=== PATIENT | male | born 1975 | race Caucasian/White ===

== ENCOUNTER → 2016-11-03 | Outpatient (CLI) | payer BC ==
--- NOTE | 2016-11-03 11:33 | MRI ---
MRI lumbar spine without contrast Indication: Lower back pain after doing squats Technique: Multiplanar, multi sequence imaging of the lumbar spine without IV contrast administration . Findings: The lumbar spine alignment is maintained. Schmorl's nodes are noted the T12, L1 and L2. The re is moderate disk desiccation and mild disc space loss at L4-5 and L5-S1. Increased signal within t he disc bulge at L5-S1 on sagittal image 7 consistent with an annular tear. No localizing bone marrow signal abnormality within the lumbar spine. There is mild edema within the interspinous space of L4- 5 consistent with a low-grade strain. No localizing fluid collection. No prevertebral fluid collectio n. The conus has a normal termination. At T12-L1 unremarkable At L1-2 unremarkable At L2-3 unremarkable. At L3-4 mild facet arthropathy without neural foraminal or spinal canal stenosis. At L4-5 broad-based disc bulge with a focal midline disc protrusion noted on axial image 34 with mild facet arthropathy causes mild spinal canal stenosis with no significant neural foraminal narrowing. At L5-S1 mild broad-based disc bulge and facet arthropathy causes mild spinal canal stenosis with mil d left and right sided neural foraminal narrowing. Impression: 1. Multilevel discogenic degenerative change and facet arthropathy most severely affecting L4-5 and L 5-S1 as described above. 2. Increased STIR and T2 signal within the posterior disc bulge at L5-S1 is consistent with an acute/ subacute annular tear. 3. Mild edema within interspinous space at L4-5 consistent with a low-grade muscle strain. Reported By:
== END | disposition home or self-care (01) | DRG 552 ==
LOC: RAD 08:53
PROVIDERS: ATTEND Internal Medicine
DX: M54.5 Low back pain (principal); R60.0 Localized edema; M46.87 Other specified inflammatory spondylopathies, lumbosacral region
CPT/HCPCS: 72148

== ENCOUNTER 2017-08-03 06:52 | Observation (INO) ==
[2017-08-03] MEDS ORDERED: DUONEB 0.5 MG/3 MG ONE ×2 (06:56→09:39)
[2017-08-03 06:57] VITALS: BMI 33.2
--- NOTE | 2017-08-03 07:02 | DR.CP ---
HPI - Time Seen Time seen: 06:55 - PCP Primary Care Physician: ARNAUD - Complaint Chief Complaint Doctor Comments: 42 y/o male c/o that he can't catch his breath. He has rappid heart beat but no c/p. He denies nausea or vomitting or diaaphoresis. 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 PT. STATES "IT FEELS LIKE MY HEART IS RUNNING AWAY, LIKE A NERVOUS FEELING." - Reviewed Nurses Notes Review: Yes - Source History Provided: Patient, Family Member, EMS - Mode of Arrival Mode of Arrival: EMS - Timing Onset of Chief Complaint: 08/03/17 - Associated Signs and Symptoms Associated Signs and Symptoms: Shortness of Breath, Palpitations. denies: Diaphoresis, Abdominal Pain, Nausea/Vomiting, Calf Pain/Swelling, Chest Rash PMH - PMH Past Medical History: Yes Past Medical History: Hypertension Past Medical History Comment: BACK PAIN Past Surgical History: Yes Surgical History: Ortho Surgery - Family History History of Family Medical Conditions: No - Social History Does patient currently use any type of tobacco product: No Have you used tobacco products in the last 12 months: No Type of Tobacco Use: None Does any household member use tobacco: No Alcohol Use: None Do you use any recreational Drugs:: No Lives With: Spouse Lives Where: Home - infectious screening In the last 2 months have you had wt loss of >10#?: NO Have you had fever, night sweats or hemotysis?: No Have you traveled outside the country in the last 6 months?: No Isolation: Standard ROS - Review of Systems Constitutional: No Symptoms Reported Eyes: No Symptoms Reported ENTM: No Symptoms Reported Respiratoy: No Symptoms Reported Cardiovascular: No Symptoms Reported Gastrointestinal/Abdominal: No Symptoms Reported Genitourinary: No Symptoms Reported Neurological: No Symptoms Reported Musculoskeletal: No Symptoms Reported Integumentary: No Symptoms Reported Hematologic/Lymphatic: No Symptoms Reported Endocrine: No Symptoms Reported Psychiatric: No Symptoms Reported All Other Systems: Reviewed and Negative PE - General Limitations: No Limitations General Appearance: Alert, In No Apparent Distress, Anxious - Head Head Exam: Normal Inspection - Eyes Eye exam: Normal Appearance - ENT ENT Exam: Normal Exam - Chest Chest Inspection: Normal Inspection - Respiratory Respiratory Exam: Normal Lung Sounds Bilat - Cardiovascular Cardiovascular Exam: Tachycardia, +S1, +S2 - Abdominal Exam Abdominal Exam: Normal Inspection, Normal Bowel Sounds, Soft Abdominal Tenderness: Suprapubic, Other (lower abdomen) - Extremities Extremities Exam: Normal Inspection - Back Back Exam: Normal Inspection - Neurologic Neurological Exam: Alert, Oriented X3 - Psychiatric Psychiatric Exam: Normal Affect, Normal Mood - Skin Skin Exam: Warm, Dry, Intact, Normal Color - Vitals Vitals: Temperature 97.6 F Pulse Rate [Apical] 85 Pulse Rate 104 Respiratory Rate 18 Blood Pressure [Right Arm] 140/99 Blood Pressure 152/89 O2 Sat by Pulse Oximetry 99 ROR - Labs Reviewed Result Diagrams: 08/03/17 07:15 08/03/17 07:15 - XRAY XRAY Interpreted by: Self (CXR: NAD) - EKG Rate: 100 [place]: Normal Rhythm: ST Block: None Hypertrophy: None - Labs Reviewed Laboratory: WBC 9.4 X10^3/uL (3.6-10.0) 08/03/17 07:15 RBC 4.92 X10^6/uL (4.7-6.0) 08/03/17 07:15 Hgb 16.2 g/dL (13.5-18.0) 08/03/17 07:15 Hct 45.6 % (42.0-54.0) 08/03/17 07:15 MCV 92.7 fL (80.0-100.0) 08/03/17 07:15 MCH 32.9 pg (27.0-34.0) 08/03/17 07:15 MCHC 35.4 g/dL (33.0-35.0) H 08/03/17 07:15 RDW 13.8 % (11.6-16.5) 08/03/17 07:15 Plt Count 179 X10^3/uL (150.0-450.0) 08/03/17 07:15 MPV 9.2 fL (7.4-11.0) 08/03/17 07:15 Neut % (Auto) 39.5 % (42.0-75.0) L 08/03/17 07:15 Lymph % (Auto) 49.0 % (21.0-51.0) 08/03/17 07:15 Hill % (Auto) 7.2 % (0.0-13.0) 08/03/17 07:15 Eos % (Auto) 3.1 % (0.9-2.9) H 08/03/17 07:15 Baso % (Auto) 1.2 % (0.2-1.0) H 08/03/17 07:15 Neut # (Auto) 3.7 x10^3/uL (2.2-4.8) 08/03/17 07:15 Lymph # (Auto) 4.6 X10^3/uL (1.3-2.9) H 08/03/17 07:15 Hill # (Auto) 0.7 x10^3/uL (0.3-0.8) 08/03/17 07:15 Eos # (Auto) 0.3 x10^3/uL (0.0-0.2) H 08/03/17 07:15 Baso # (Auto) 0.1 X10^3/uL (0.0-0.1) 08/03/17 07:15 Absolute Nucleated RBC 0.1 /100WBC 08/03/17 07:15 INR Target Range - 08/03/17 07:15 INR 0.89 (0.8-1.3) 08/03/17 07:15 APTT 27.5 SECONDS (22.9-36.5) 08/03/17 07:15 PTT Comment - 08/03/17 07:15 D-Dimer 206 ng/mL (0-400) 08/03/17 07:15 Sodium 138 mmol/L (136-145) 08/03/17 07:15 Corrected Sodium 138 mmol/L (136-145) 08/03/17 07:15 Potassium 3.9 mmol/L (3.5-5.1) 08/03/17 07:15 Chloride 102 mmol/L (98-107) 08/03/17 07:15 Carbon Dioxide 21.1 mmol/L (21-32) 08/03/17 07:15 BUN 23 mg/dL (7-18) H 08/03/17 07:15 Creatinine 1.26 mg/dL (0.70-1.30) 08/03/17 07:15 Est GFR (MDRD) Af Amer > 60 (>60) 08/03/17 07:15 Est GFR (MDRD) Non-Af > 60 (>60) 08/03/17 07:15 Glucose 118 mg/dL (65-99) H 08/03/17 07:15 Calcium 9.7 mg/dL (8.5-10.1) 08/03/17 07:15 Corrected Calcium TNP 08/03/17 07:15 Total Bilirubin 0.50 mg/dL (0.2-1.0) 08/03/17 07:15 AST 30 Units/L (15-37) 08/03/17 07:15 ALT 26 Units/L (12-78) 08/03/17 07:15 Alkaline Phosphatase 80 Units/L (46-116) 08/03/17 07:15 Creatine Kinase 148 Units/L (39-308) 08/03/17 07:15 CK-MB (CK-2) 1.3 ng/mL (0-4.0) 08/03/17 07:15 CK/CKMB % Calc 0.9 % (<4) 08/03/17 07:15 Troponin I < 0.02 ng/mL (0-1.5) 08/03/17 07:15 Total Protein 8.1 g/dL (6.4-8.2) 08/03/17 07:15 Albumin 4.3 g/dL (3.4-5.0) 08/03/17 07:15 Globulin 3.8 g/dL (2.5-4.5) 08/03/17 07:15 Albumin/Globulin Ratio 1.1 Ratio (1.1-2.1) 08/03/17 07:15 TSH 3rd Generation 3.046 uIU/mL (0.358-3.74) 08/03/17 07:15 - Diagnosis Discharge Problem: Chest pain - Discharge Plan Condition: Stable - Follow ups/Referrals Follow ups/Referrals: DIANNA GARDNER [Primary Care Provider] - 3 days - Instructions
[2017-08-03] MEDS ORDERED: DUONEB 0.5 MG/3 MG NEB ONE (07:05)
[2017-08-03] MEDS ORDERED: ATIVAN INJ 2 MG VIAL ONE (07:07)
[2017-08-03] MEDS ORDERED: ATIVAN INJ 2 MG VIAL IVP ONE (07:07)
--- NOTE | 2017-08-03 07:24 | RAD ---
HISTORY: Chest pain Study: Chest AP portable Comparison: None Findings: The heart is within normal limits in size. The chitra are normal. The lung elliott are clear. No pleural effusions are identified. The bony thorax is unremarkable. IMPRESSION: No significant abnormality identified Reported By:
[2017-08-03 07:30] LABS: BASOPHILS # (AUTO) 0.1 X10^3/uL (0.0-0.1); BASOPHILS % (AUTO) 1.2 % (0.2-1.0); EOSINOPHILS # (AUTO) 0.3 x10^3/uL (0.0-0.2); EOSINOPHILS % (AUTO) 3.1 % (0.9-2.9); HEMATOCRIT 45.6 % (42.0-54.0); HEMOGLOBIN 16.2 g/dL (13.5-18.0); LYMPHOCYTES # (AUTO) 4.6 X10^3/uL (1.3-2.9); MEAN CORPUSCULAR HEMOGLOBIN 32.9 pg (27.0-34.0); MEAN CORPUSCULAR HGB CONC 35.4 g/dL (33.0-35.0); MEAN CORPUSCULAR VOLUME 92.7 fL (80.0-100.0); MEAN PLATELET VOLUME 9.2 fL (7.4-11.0); MONOCYTES # (AUTO) 0.7 x10^3/uL (0.3-0.8); MONOCYTES % (AUTO) 7.2 % (0.0-13.0); NEUTROPHILS # (AUTO) 3.7 x10^3/uL (2.2-4.8); NEUTROPHILS % (AUTO) 39.5 % (42.0-75.0); PLATELET COUNT 179 X10^3/uL (150.0-450.0); RED BLOOD COUNT 4.92 X10^6/uL (4.7-6.0); RED CELL DISTRIBUTION WIDTH 13.8 % (11.6-16.5); WHITE BLOOD COUNT 9.4 X10^3/uL (3.6-10.0)
[2017-08-03 07:44] LABS: BLOOD UREA NITROGEN 23 mg/dL (7-18); CALCIUM 9.7 mg/dL (8.5-10.1); CARBON DIOXIDE 21.1 mmol/L (21-32); CHLORIDE 102 mmol/L (98-107); COR NA(FOR HYPERGLY) 138 mmol/L (136-145); CREATININE 1.26 mg/dL (0.70-1.30); SODIUM 138 mmol/L (136-145); TROPONIN I < 0.02 ng/mL (0-1.5); eGFR NON BLACK RACES > 60 (>60)
[2017-08-03 07:48] LABS: ALANINE AMINOTRANSFERASE 26 Units/L (12-78); ALBUMIN 4.3 g/dL (3.4-5.0); ALKALINE PHOSPHATASE 80 Units/L (46-116); ASPARTATE AMINO TRANSFERASE 30 Units/L (15-37); CKMB % 0.9 % (<4); CREATINE KINASE 148 Units/L (39-308); CREATINE KINASE MB 1.3 ng/mL (0-4.0); TOTAL PROTEIN 8.1 g/dL (6.4-8.2); TSH (3RD GENERATION) 3.046 uIU/mL (0.358-3.74)
[2017-08-03] MEDS ORDERED: LOVENOX INJ 40 MG SYR SC SCH (09:00)
[2017-08-03] MEDS ORDERED: NITROSTAT SL PRN (09:16)
[2017-08-03 10:00] LABS: CREATINE KINASE 123 Units/L (39-308); CREATINE KINASE MB 1.2 ng/mL (0-4.0); TROPONIN I < 0.02 ng/mL (0-1.5)
[2017-08-03] MEDS: NS 1000 ML 1,000 ML IV SCH ×2 (10:01→22:11)
[2017-08-03] MEDS: PROTONIX TAB 40 MG PO SCH (10:01)
[2017-08-03] MEDS ORDERED: NS 100 ML IV 100 ML IV ONE (14:44)
--- NOTE | 2017-08-03 15:37 | CT ---
CTA chest with contrast per pulmonary embolism protocol Indication: Shortness of breath and elevated D-dimer Comparison: None available Technique: Multiple axial images of the chest were obtained from the thoracic inlet to the upper abdo men after the administration of IV contrast.Coronal and Sagittal MIP images were also provided. Findings: Contrast bolus timing is suboptimal, there is thrombus noted within the segmental branch of the right middle lobe pulmonary artery seen on image 49, series 4 with suspected nonocclusive thrombus within the segmental branches of the right lower lobe pulmonary artery on axial image 51 and within the left lobe subsegmental pulmonary artery's on coronal image 73. No pulmonary arterial dilatation. No flat tening of the interventricular septum. Thyroid gland is unremarkable. Heart size is normal without pericardial effusion. Thoracic aorta is normal in caliber. No enlarged mediastinal or hilar lymphadenopathy. Small sliding hiatal hernia w ith moderate amount of intra-abdominal fat herniation to the esophageal hiatus into the thorax. No focal airspace opacity, nodule or mass identified within either lung. No pleural effusion or pneu mothorax. Visualized upper abdomen and osseous structures are without acute abnormality. IMPRESSION: 1. Significantly limited evaluation of the pulmonary arteries given suboptimal contrast bolus timing ; however, there is thrombus noted within a segmental branch of the right middle lobe pulmonary arter y with suspected nonocclusive thrombi within bilateral lower lobes segmental and subsegmental pulmona ry arteries. No ventricular heart strain or pulmonary arterial dilatation identified. 2. No acute airspace disease. Reported By:
[2017-08-03] MEDS ORDERED: XARELTO PO ONE (16:03)
[2017-08-03] MEDS: XARELTO PO SCH ×2 (16:49→22:36)
--- NOTE | 2017-08-03 21:57 | DR.H&P ---
H&P - History & Physical for Day of: H&P Date: 08/03/17 - Chief Complaint Chief Complaint: short of breath, chest pain - History of Present Illness History of Present Illness: Mr. Mcnulty is a 42 year old patient of ours who presented to the emergency room via EMS with reports of shortness of breath and chest pain. Patient reports symptoms started about an hour prior to arrival with associated rapid heart rate and feeling nervous. He denied nausea, vomiting, or diaphoresis. EMS reports on arrival, patient noted with a heart rate in the 140's. Medical History includes Hypertension, Back Pain, and a pulmonary embolism five years ago. On arrival to the ER, vitals were 97.6, 110, 24, 98% 2L NC, 152/89. Labs were obtained. Abnormal lab values include the following: Abnormal Labs: MCHC 35.4, BUN 23, Glucose 118. Cardiac enzymes within normal limits. EKG revealed: Sinus Tachycardia. Mzxz=255. Chest X-Ray revealed: No significant abnormality identified. He was given Ativan 1mg IV x 1 dose. Patient admitted to the hospital as observation for further evaluation and treatment. Plans are to obtain serial cardiac enzymes and EKG's as well as a CT of the chest with contrast. He was started on Lovenox 40mg SC daily, Protonix 40mg po daily, Nitrstat 0.4mg SL Q5min PRN, NS @75ml/hr. We will follow up with labs in the morning and continue to monitor. - Past Medical History Past Medical History: Hypertension Additional Medical History: chronic back pain, hx Pulmonary embolisms - Past Surgical History Surgical History: Ortho Surgery - Family History Family Medical History: Cancer, Hypertension - Social History Does patient currently use any type of tobacco product: No Have you used tobacco products in the last 12 months: No Type of Tobacco Use: None Does any household member use tobacco: No Alcohol Use: Occasionally Drug Use: Prescription Drugs - Medications Home Medications: lisinopril Allergy (Verified 08/03/17 06:54) CONTINUE taking the following medications amlodipine 1 mg PO DAILY 08/03/17 [History] metoprolol succinate 1 mg PO DAILY 08/03/17 [History] - Review of Systems Constitutional: No Symptoms Reported Eyes: No Symptoms Reported ENT: No Symptoms Reported Respiratory: See HPI, Shortness of Breath. denies: Cough, Dry, Hemoptysis, SOB with Excertion, Pleuritic Pain, Sputum, Wheezing Cardiovascular: Chest Pain, See HPI, Palpitations. denies: Edema, Light Headedness Gastrointestinal: No Symptoms Reported Genitourinary: No Symptoms Reported Musculoskeletal: No Symptoms Reported Skin: No Symptoms Reported Neurological: No Symptoms Reported - Physical Exam Vital Signs: Temperature 98.5 F Pulse Rate [Apical] 67 Pulse Rate 104 Respiratory Rate 17 Blood Pressure [Right Arm] 141/88 Blood Pressure 152/89 O2 Sat by Pulse Oximetry 98 Oriented: Normal Eyes: Normal Ear: Normal Nose: Normal Throat: Normal Respiratory: Clear Throughout Cardiovascular: Tachycardia. 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
[2017-08-04 06:08] LABS: BASOPHILS % (AUTO) 0.7 % (0.2-1.0); EOSINOPHILS # (AUTO) 0.3 x10^3/uL (0.0-0.2); EOSINOPHILS % (AUTO) 4.1 % (0.9-2.9); HEMOGLOBIN 14.7 g/dL (13.5-18.0); LYMPHOCYTES # (AUTO) 2.6 X10^3/uL (1.3-2.9); LYMPHOCYTES % (AUTO) 41.7 % (21.0-51.0); MEAN CORPUSCULAR HGB CONC 34.9 g/dL (33.0-35.0); MEAN CORPUSCULAR VOLUME 94.4 fL (80.0-100.0); MEAN PLATELET VOLUME 8.9 fL (7.4-11.0); MONOCYTES # (AUTO) 0.7 x10^3/uL (0.3-0.8); MONOCYTES % (AUTO) 10.6 % (0.0-13.0); NEUTROPHILS # (AUTO) 2.6 x10^3/uL (2.2-4.8); NEUTROPHILS % (AUTO) 42.9 % (42.0-75.0); PLATELET COUNT 157 X10^3/uL (150.0-450.0); RED BLOOD COUNT 4.45 X10^6/uL (4.7-6.0); RED CELL DISTRIBUTION WIDTH 13.8 % (11.6-16.5); WHITE BLOOD COUNT 6.2 X10^3/uL (3.6-10.0)
[2017-08-04 06:34] LABS: ALANINE AMINOTRANSFERASE 22 Units/L (12-78); ALBUMIN 3.6 g/dL (3.4-5.0); ALKALINE PHOSPHATASE 68 Units/L (46-116); ASPARTATE AMINO TRANSFERASE 23 Units/L (15-37); BLOOD UREA NITROGEN 15 mg/dL (7-18); CALCIUM 8.9 mg/dL (8.5-10.1); CARBON DIOXIDE 28.1 mmol/L (21-32); CHLORIDE 103 mmol/L (98-107); CHOL/HDL RATIO 3.4 (0.0-5.0); CHOLESTEROL 199 mg/dL (0-200); CREATININE 1.18 mg/dL (0.70-1.30); HDL CHOLESTEROL 58 mg/dL (40-60); SODIUM 139 mmol/L (136-145); TOTAL PROTEIN 6.9 g/dL (6.4-8.2); TRIGLYCERIDES 135 mg/dL (0-150); eGFR NON BLACK RACES > 60 (>60)
[2017-08-04] MEDS ORDERED: PriLOSEC PO SCH (09:00)
[2017-08-04] MEDS ORDERED: NORVASC TAB 10 MG PO SCH (09:00)
[2017-08-04] MEDS ORDERED: OMEPRAZOLE 20 MG PO SCH (09:00)
[2017-08-04] MEDS ORDERED: TOPROL XL PO SCH (09:00)
[2017-08-04] MEDS: PROTONIX TAB 40 MG PO SCH (09:09)
[2017-08-04] MEDS: XARELTO PO SCH (09:09)
--- NOTE | 2017-08-04 11:55 | VAS ---
HISTORY: Bilateral PEs. History of DVT. Study: Bilateral lower extremity venous Doppler Comparison: December 30, 2014. TECHNIQUE: Real-time dynamic grayscale, color flow and complete spectral Doppler ultrasound examinat ion of the major deep venous structures were obtained of both lower extremities. FINDINGS: Right lower extremity: Real-time examination shows no evidence of thrombus within the common femoral , superficial femoral, or popliteal veins. There is normal compressibility throughout. Color flow mariaelena ging shows normal venous blood flow within the major vessels. Doppler examination shows normal venous waveforms with appropriate respiratory variation and augmentation. Left lower extremity: Real-time examination shows no evidence of thrombus within the common femoral, superficial femoral, or popliteal veins. There is normal compressibility throughout. Color flow imagi ng shows normal venous blood flow within the major vessels. Doppler examination shows normal venous w aveforms with appropriate respiratory variation and augmentation. IMPRESSION: 1. Normal bilateral lower extremity venous Doppler, without evidence of DVT. Reported By:
[2017-08-04 14:07] VITALS: BP 127/82
--- NOTE | 2017-08-28 00:13 | DR.CARTERD ---
- Discharge Summary for: Discharge Summary for Date of:: 08/04/17 - Admission Date Date of Admission: 08/03/17 - Admission Diagnoses Admission Diagnosis: (1) Chest pain (2) Shortness of breath - Discharge Date Discharge Date: 08/04/17 - Discharge Diagnoses Discharge Diagnosis: (1) Chest pain (2) Shortness of breath - Hospital Course Hospital Course: Mr. Mcnulty is a 42 year old patient of ours who presented to the emergency room via EMS with reports of shortness of breath and chest pain. Patient reported symptoms started about an hour prior to arrival with associated rapid heart rate and feeling nervous. He denied nausea, vomiting, or diaphoresis. EMS reported on arrival, patient noted with a heart rate in the 140's. Medical History included hypertension, back pain, and a pulmonary embolism five years ago. On arrival to the ER, vitals were 97.6, 110, 24, 98% 2L NC, 152/89. Labs were obtained. Abnormal lab values included the following: Abnormal Labs: MCHC 35.4, BUN 23, Glucose 118. Cardiac enzymes within normal limits. EKG revealed: Sinus Tachycardia. Xlst=403. Chest X-Ray revealed: No significant abnormality identified. He was given Ativan 1mg IV x 1 dose. Patient admitted to the hospital as observation for further evaluation and treatment. We obtained serial cardiac enzymes and EKG's. He was started on Lovenox 40mg SC daily, Protonix 40mg po daily, Nitrstat 0.4mg SL Q5min PRN, NS @75ml/hr. We continued to monitor. We obtained a CT of chest due to shortness of breath and it reported : significantly limited evaluation of the pulmonary arteries given suboptimal contrast bolus timing; however, there is thrombus noted within a segmental branch of the right middle lobe pulmonary artery with suspected nonocclusive thrombi within bilateral lower lobes segmental and subsegemental pulmonary arteries; no acute airspace disease. We started patient on Xarelto bid. A bilateral lower extremity venous doppler was also obtained and it was negative for DVT. The next day, patient reported he was feeling better. He denied chest pain or shortness of breath. No distress was noted. Cardiac enzymes and ekg's were normal. Vital signs stable. O2 saturations were greater than 95% on room air. Labs wnl. We planned for discharge with new prescription for Xarelto. Instructions for medications and follow up were discussed with patient and family, both voiced understanding. Patient discharged home in stable condition with family. - Discharge Medications Discharge Medications: Home Medication List amlodipine 1 mg PO DAILY 08/03/17 [History] metoprolol succinate 1 mg PO DAILY 08/03/17 [History] rivaroxaban [Xarelto] 15 mg PO BID #30 tab 08/04/17 [Rx] Prescriptions: rivaroxaban [Xarelto] Jonn Sparks Omeprazole 20 mg PO DAILY 09/10/11 - Discharge Disposition Discharge Disposition: Patient is to follow up in our office in one week.
== END 2017-08-04 14:00 | disposition home or self-care (01) ==
LOC: ER 06:52 → ICU 06:52
PROVIDERS: ADMIT Internal Medicine; ATTEND Internal Medicine
DX: F41.8 Other specified anxiety disorders; R06.02 Shortness of breath; K21.9 Gastro-esophageal reflux disease without esophagitis; R07.89 Other chest pain; R00.0 Tachycardia, unspecified; I10 Essential (primary) hypertension
CPT/HCPCS: 36415; 71010; 71045; 71275; 80053; 80061; 82550; 82553; 84443; 84484; 85025; 85378; 85610; 85730; 93005; 93970; 94640; 96365; 96374; 99284; G0378; J1650; J2060; J7030; J7050; J7620